=== PATIENT | male | born 1985 | race African-American/Black ===

== ENCOUNTER 2017-06-08 19:54 | Emergency (ER) | payer MEDICAID ==
[~2017-06-08] VITALS: Ht 188 cm; Wt 64.0 kg
[2017-06-09] MEDS ORDERED: HYDROCODONE/ACETAMINOPHEN 5/325MG TABLET PO ONE (02:30)
[2017-06-09] MEDS ORDERED: TETANUS, DIPHTHERIA, PERTUSSIS VAC/PF 0.5ML (>7YR OLD) IM ONE (02:30)
[2017-06-09] MEDS ORDERED: BACITRACIN ZINC OINT UDPKT TOP ONE (02:30)
[2017-06-09 03:35] VITALS: BP 105/66
== END 2017-06-09 04:45 | disposition home or self-care (01) ==
LOC: ER 19:54
DX: S80.02XA Contusion of left knee, initial encounter (principal); F12.10 Cannabis abuse, uncomplicated; F17.200 Nicotine dependence, unspecified, uncomplicated; X50.9XXA Other and unspecified overexertion or strenuous movements or postures, initial encounter; Y93.89 Activity, other specified; Y99.8 Other external cause status; Y92.488 Other paved roadways as the place of occurrence of the external cause
CPT/HCPCS: 73562; 90471; 90715; 99284; X7700; Z7610